=== PATIENT | female | born 1975 | race Caucasian/White ===

== ENCOUNTER → 2017-02-17 | Day surgery (SDC) | payer MEDICAID ==
[~2017-02-17] MED LIST: ALBUTEROL17 GM INH; DELTASONE10 MG PO; FLAGYL500 M1 PO; HYDROCODON-ACE1 EA16 PO; KEFLEX500 MG PO; LEVAQUIN500 M1 PO; NORCO 5-325 TA1 EACH PO; NORCO 5/325 TAB1 TAB PO; PEN-VEE K500 MG PO; PREDNISONE10 M1 PO; PROAIR HFA8.5 GM IH; RECLIPSEN 28 D1 EACH PO; VIBRAMYCIN100 M1 PO
== END ==
LOC: EDMED 11:21 → SRG 13:50
PROC: 0DC38ZZ Extirpation of Matter from Lower Esophagus, Via Natural or Artificial Opening Endoscopic (ICD-10-PCS; principal; 2017-02-17)
DX: T18.128A Food in esophagus causing other injury, initial encounter (principal); K44.9 Diaphragmatic hernia without obstruction or gangrene; R13.10 Dysphagia, unspecified
CPT/HCPCS: J2270; J2405; J7030